=== PATIENT | female | born 1940 | race Caucasian/White ===

== ENCOUNTER 2022-09-09 13:17 | Emergency (ER) | payer OTHER ==
[2022-09-09 13:28] VITALS: BP 165/72; PULSE 67; RESP 20; TEMP 98.7; BMI 25.6
== END 2022-09-09 16:38 | disposition home or self-care (01) ==
LOC: JER 13:17
DX: S59.902A Unspecified injury of left elbow, initial encounter (principal); S52.022A Displaced fracture of olecranon process without intraarticular extension of left ulna, initial encounter for closed fracture; W10.8XXA Fall (on) (from) other stairs and steps, initial encounter
CPT/HCPCS: 70450-TC; 71045-TC-FY; 72125-TC; 72170-TC-FY; 73030-TC-LT-FY; 73060-TC-LT-FY; 73090-TC-LT-FY; 73130-TC-LT-FY; 99285-25